=== PATIENT | male | born 1935 | race Caucasian/White ===

== ENCOUNTER 2022-04-14 07:45 | Inpatient (IN) ==
[2022-04-14] MEDS ORDERED: ONDANSETRON INJ 2 MG/ML 2 ML VIAL IV STA (07:51)
[2022-04-14] MEDS: HYDROmorphone INJ 0.5 MG/0.5 ML SYR IV PRN ×3 (07:58→18:45)
[2022-04-14] MEDS ORDERED: SODIUM CHLORIDE 0.9% 500 ML IV SCH (08:00)
[2022-04-14] MEDS ORDERED: HYDROmorphone INJ 0.5 MG/0.5 ML SYR IV STA (08:02)
[2022-04-14 08:04] LABS: Basophils # (auto) 0.03 K/uL (0-0.2); Basophils % (auto) 0.3 %; Eosinophils # (auto) 0.01 K/uL (0-0.50); Eosinophils % (auto) 0.1 %; Hemoglobin 13.2 g/dl (14.0-18.0); Immature Granulocytes # (auto) 0.05 K/uL (0.00-0.02); Immature Granulocytes % (auto) 0.4 %; Lymphocytes # (auto) 1.59 K/uL (1.2-3.4); Lymphocytes % (auto) 13.7 %; Mean Corpuscular Hemoglobin 30.6 pg (25.0-34.0); Mean Corpuscular Volume 92.6 fL (80.0-100.0); Mean Platelet Volume 9.3 fL (9.4-12.4); Monocytes # (auto) 0.82 K/uL (0.24-0.82); Monocytes % (auto) 7.1 %; Neutrophils % (auto) 78.4 %; Platelet Count 248 K/uL (130-400); RDW Coefficient of Variation 13.5 % (11.5-14.5); RDW Standard Deviation 46.2 fL (36.4-46.3); Red Blood Count 4.32 M/uL (4.63-6.08)
[2022-04-14 08:30] LABS: Alanine Aminotransferase 9 U/L (7-52); Albumin Globulin Ratio 1.1 (0.9-2); Albumin Level 3.6 gm/dl (3.4-5.0); Alkaline Phosphatase 144 U/L (34-104); Anion Gap 5 (3-11); Aspartate Aminotransferase 44 U/L (13-39); BUN Creatinine Ratio 19.8 (10-20); Bilirubin,Total 0.5 mg/dl (0.2-1.0); Blood Urea Nitrogen 18 mg/dl (6-23); Calcium 12.8 mg/dl (8.5-10.1); Carbon Dioxide 32 mmol/L (21-32); Chloride 99 mmol/L (98-107); Est GFR (African American) 88.1 ml/min; Globulin 3.4 gm/dl (2.5-4.0); Glucose 154 mg/dl (70-99(Fasting)); Potassium 4.4 mmol/L (3.5-5.1); Sodium 136 mmol/L (136-145)
--- NOTE | 2022-04-14 08:37 | XRay Report ---
XR humerus LT 2V CLINICAL HISTORY: fall TECHNIQUE: 2 radiographic views of the left humerus were obtained. Comparison: Comparison is made to left elbow radiographs 04/01/2022 FINDINGS: The joint is in place in a splint limiting fine bony detail. There is increased displacement of a pat hologic fracture along with a lytic lesion of the distal humerus. Displaced bony fragments are noted. There is normal bone mineralization. Soft tissue swelling is seen. IMPRESSION: Interval increase in displacement and comminution of previously noted pathologic fracture of the dist al humerus. ACT 112: Negative or not required by law. Electronically signed by: Stephen Cárdenas M.D. 04/14/2022 8:36 AM
[2022-04-14] MEDS ORDERED: SODIUM CHLORIDE 0.9% 1000ML 1,000 ML IV STA (08:56)
[2022-04-14] MEDS ORDERED: SODIUM CHLORIDE 0.9% 1000ML 500 ML IV ONE (08:56)
--- NOTE | 2022-04-14 09:25 | Emergency Department Note ---
Impression & Plan Pathologic fracture of humerus, Fall, Hypercalcemia ED Provider Note INFORMANT: Patient and ED PROVIDER(S): Kenan Garcia MD CHIEF COMPLAINT: Fall and arm pain PLAN: Disposition: Admitted Condition: Guarded Outpatient prescription management: none Referral: None MEDICAL DECISION MAKING: Patient presented because of an accidental fall. He landed on his left arm. He has a known lesion in that arm and he was quite uncomfortable. An IV was established. He was given multiple doses of IV Dilaudid and did receive a dose of IV Zofran. I did place the patient in a long-arm posterior and coaptation splint. X-ray imaging was performed and revealed the presence of a pathologic fracture in the distal left humerus. Patient was found to be hypercalcemic on his laboratory testing. I did discuss the case with his orthopedic team at [facility] Patient is being treated palliatively. They note that this would be an extensive surgical intervention. The patient's noted that they do not have any plans for significant surgeries and the patient is transitioning to hospice. he will need further management in the hospital. Consultation was made with the hospitalist. Patient was evaluated in ER admitted for further management Triage Nursing notes reviewed and agree them. Vital Signs: reviewed and remarkable for hypertension Differential diagnosis: Fracture, subluxation, dislocation, contusion, ligamentous injury, neurovascular, compartment syndrome, rhabdomyolysis, as well as other pathologies. Diagnostics interpreted by me: ECG: none Cardiac Monitoring: Cardiac monitoring ordered by me: The patient was placed on continuous cardiac monitoring and observed. It revealed a normal sinus rhythm at 99 beats per minute without ectopy or evidence of dysrhythmia. Imaging studies: X-ray imaging of the left humerus reveals the presence of a pathologic fracture with displacement. HPI: The patient is a 87 year old male who presents to the Emergency Room with complaints of left arm pain after a fall. This started just prior to arrival and is described as accidental. The patient was going into oncology for palliative radiation on his left arm because of a bony met. The patient also notes the following associated symptoms, none. states the patient may have been a little more confused over the last few days but he has underlying dementia. She notes that the primary may be in the liver but he has spots in multiple places. The patient was to do 5 days of palliative radiation and then start hospice. The patient has taken no medication for relieving factors. Current pain is rated as 10/10. Pt denies LOC, headache, fevers, chills, diaphoresis, visual changes, neck pain, chest pain, breathing difficulties, nausea, vomiting, abdominal pain, back pain, melena, hematochezia, urinary symptoms, numbness, weakness, lymphadenopathy, rash, or other complaints. ROS: See above HPI for pertinent positives & negatives. A total of 10 systems reviewed and were otherwise negative. PAST MEDICAL HISTORY:See Below , metastatic cancer PAST SURGICAL HISTORY:See Below, FAMILY HISTORY:See Below SOCIAL HISTORY:See Below, HOME MEDICATIONS:See Below ALLERGIES:See Below VITALS:See Below PHYSICAL EXAMINATION: GENERAL: Awake, alert, uncomfortable-appearing, in moderate distress HENT: Normocephalic, atraumatic. Oropharynx unremarkable. EYES: Normal conjunctiva. Sclera non-icteric. NECK: Inspection normal. Non-tender. Supple. No nuchal rigidity. FROM. No masses. RESPIRATORY: Clear to auscultation. No wheezes. No rales. Normal respiratory effort. CARDIAC: Normal rate. Normal rhythm. No murmurs. No rubs. Extremities warm and well perfused. Pulses equal. No JVD. GI: Soft, non-distended. No tenderness to palpation. No rebound or guarding. No masses. RECTAL: Deferred. MUSCULOSKELETAL: Right upper and both lower extremities are atraumatic. Chest examination reveals no tenderness. The back is symmetrical on inspection without obvious abnormality. There is no CVA tenderness to palpation. There is moderate swelling to the distal left humerus. No open wounds are noted. Moderate tenderness to palpation. Limitation in range of motion of the left elbow. The left shoulder, forearm, wrist, and hand are nontender. Left upper extremity is neurovascular intact over all dermatomes and myotomes. LOWER EXTREMITIES: Calves are equal size bilaterally and non-tender. No edema. No discoloration. NEURO: Normal sensorium. No sensory or motor deficits noted. SKIN: No rash or jaundice noted. SPLINTING: Indication: Pathologic fracture The injured extremity was identified. The patient was prepped and measured for the placement of a long-arm posterior and coaptation orthoglass splint. Splint applied in the standard fashion over a layer of webril and secured using an e lastic bandage by me. Set into a position of function. Normal neurovascular status after placement verified by me. The patient tolerated the procedure well and the care of the splint was discussed with the patient/family. No complications. Kenan Garcia MD Past Med/Surg History Medical History Alzheimer disease Carotid artery disease "carotid duplex [facility] 12/07/13 ~ 50% stenosis right carotid bulb" Chronic rhinitis Diet-controlled type 2 diabetes mellitus Dyslipidemia HTN (hypertension) Melanoma of back Metastasis to bone of unknown primary Mild aortic stenosis "echo from 09/2013: EF 60-65%, mild aortic valve stenosis and calcification, grade I diastolic dysfunction " Osteomyelitis Rosacea Surgical History H/O vasectomy History of biopsy Bone biopsy 2021 Family History Father Cancer Brain tumor Social History Smoking Status: Former smoker Tobacco Type: Cigarettes and Smokeless Tobacco (Dip or Chew) packs per day: 1; Hx Alcohol Use: Yes Alcohol type: beer Alcohol Intake Frequency: Monthly or Less Hx Substance Use: No Preferred Language: Romanian Communication Ability: Effective Visual Impairment: No Limitations Hearing Ability: Hard of Hearing Research Administrator Required: No Beliefs That Will Affect Care: Caodaism marital status: Current Living Situation: Spouse current occupational status: retired Feels Safe at Home: Yes during the past year weight has: decreased > 10 lbs Assistive Devices: Walker and Wheelchair Allergies Allergies Allergy/AdvReac Type Severity Reaction Status Date / Time No Known Allergies Allergy Unknown Verified 12/06/21 08:00 Home Meds Home Medications Medication Instructions Recorded Confirmed donepezil 10 mg tablet 10 mg PO DAILY 11/18/21 04/14/22 tamsulosin 0.4 mg capsule 0.4 mg PO DAILY 11/18/21 04/14/22 dexamethasone 4 mg tablet 4 mg PO DAILY 04/01/22 04/14/22 morphine 100 mg capsule,extended 100 mg PO Q12H 04/01/22 04/14/22 release pellets buspirone 5 mg tablet 5 mg PO TID PRN Anxiety 04/14/22 04/14/22 naloxegol 25 mg tablet (Movantik) 25 mg PO QAM 04/14/22 04/14/22 oxycodone 20 mg tablet 40 mg PO Q4 PRN Pain 04/14/22 04/14/22 polyethylene glycol 3350 17 17 g PO BID 04/14/22 04/14/22 gram/dose oral powder (Miralax) Previous Rx's Medication Instructions Recorded hyoscyamine sulfate 0.125 mg 0.125 mg PO Q4H PRN increased oral 04/17/22 sublingual tablet (Oscimin SL) secretions #12 tabs lorazepam 0.5 mg tablet (Ativan) 0.5 mg PO Q4H PRN 04/17/22 anxiety/agitation #6 tabs morphine concentrate 100 mg/5 mL 5 mg (0.25 mL) PO Q4H PRN severe 04/17/22 (20 mg/mL) oral solution pain (scale score 7-10) #30 mL Results & Data (ED) Vital Signs Vital Signs - 24 hr 04/14/22 07:46 04/14/22 07:51 Temperature 36.8 C Temperature Source Oral Pulse Rate 118 H Pulse Rhythm Regular Respiratory Rate 22 Respiratory Effort / Characteristics Non-Labored Spontaneous Respiratory Depth Normal Respiratory Pattern Regular Blood Pressure 176/92 H Blood Pressure Mean 120 Blood Pressure Position Lying Pulse Oximetry 99 Oxygen Delivery Method Room Air Room Air Sepsis Recent Fever Within 48 Hours No Sepsis New/Unexplained Change in Mental Status No Sepsis Action Taken by Nursing No Action Required Laboratory Data Result diagrams: 04/17/22 07:17 04/17/22 07:17 Lab Results 04/14/22 04/14/22 04/14/22 Range/Units 07:45 07:45 09:30 WBC 11.60 H (4.8-10.8) K/ul RBC 4.32 L (4.63-6.08) M/uL Hgb 13.2 L (14.0-18.0) g/dl Hct 40.0 L (40.1-51.0) % MCV 92.6 (80.0-100.0) fL MCH 30.6 (25.0-34.0) pg MCHC 33.0 (32.0-36.0) g/dL RDW Std Deviation 46.2 (36.4-46.3) fL RDW Coeff of Francis 13.5 (11.5-14.5) % Plt Count 248 (130-400) K/uL MPV 9.3 L (9.4-12.4) fL Immature Gran % (Auto) 0.4 % Neut % (Auto) 78.4 % Lymph % (Auto) 13.7 % [place] % (Auto) 7.1 % Eos % (Auto) 0.1 % Baso % (Auto) 0.3 % Neut # (Auto) 9.10 H (1.4-6.5) K/uL Lymph # (Auto) 1.59 (1.2-3.4) K/uL [place] # (Auto) 0.82 (0.24-0.82) K/uL Eos # (Auto) 0.01 (0-0.50) K/uL Baso # (Auto) 0.03 (0-0.2) K/uL Immature Gran # (Auto) 0.05 H (0.00-0.02) K/uL Sodium 136 (136-145) mmol/L Potassium 4.4 (3.5-5.1) mmol/L Chloride 99 (98-107) mmol/L Carbon Dioxide 32 (21-32) mmol/L Anion Gap 5 (3-11) BUN 18 (6-23) mg/dl Creatinine 0.91 (0.6-1.4) mg/dl Est Cr Clr Drug Dosing Not Reportable Est GFR ( Amer) 88.1 ml/min Est GFR (Non-Af Amer) 76.0 ml/min BUN/Creatinine Ratio 19.8 (10-20) Glucose 154 H (70-99(Fasting)) mg/dl Calcium 12.8 H* (8.5-10.1) mg/dl Total Bilirubin 0.5 (0.2-1.0) mg/dl AST 44 H (13-39) U/L ALT 9 (7-52) U/L Alkaline Phosphatase 144 H (34-104) U/L Total Protein 7.0 (6.0-8.3) gm/dl Albumin 3.6 (3.4-5.0) gm/dl Globulin 3.4 (2.5-4.0) gm/dl Albumin/Globulin Ratio 1.1 (0.9-2) SARS-CoV-2, RNA, NAAT NEGATIVE (NEGATIVE) Administered Medications Discontinued Medications Enoxaparin Sodium (Enoxaparin Inj 40 Mg/0.4 Ml Syr) 40 mg SQ QAM QUENTIN Stop: 05/15/22 08:59 Last Admin: 04/17/22 08:37 Dose: 40 mg Documented By: Admin: 04/16/22 09:22 Dose: 40 mg Documented By: ROSA MARIA Admin: 04/15/22 09:12 Dose: 40 mg Documented By: ROSA MARIA Haloperidol (Haloperidol 1 Mg Tab) 2 mg PO NOW STA Stop: 04/14/22 15:23 Last Admin: 04/14/22 15:56 Dose: 2 mg Documented By: JUANY Haloperidol Lactate (Haloperidol Lactate 5 Mg/Ml 1 Ml Vial) 1 mg IV NOW STA Stop: 04/14/22 15:13 Last Admin: 04/14/22 16:54 Dose: Not Given Documented By: JUANY Hydromorphone HCl (Hydromorphone Inj 0.5 Mg/0.5 Ml Syr) 0.5 mg IV Q15M PRN PRN Reason: pain Stop: 04/28/22 07:59 Last Admin: 04/14/22 08:21 Dose: 0.5 mg Documented By: Admin: 04/14/22 07:58 Dose: 0.5 mg Documented By: CARLEE Hydromorphone HCl (Hydromorphone Inj 0.5 Mg/0.5 Ml Syr) 0.5 mg IV NOW STA Stop: 04/14/22 08:03 Last Admin: 04/14/22 08:06 Dose: 0.5 mg Documented By: CARLEE Hydromorphone HCl (Hydromorphone Inj 0.5 Mg/0.5 Ml Syr) 0.5 mg IV Q2H PRN PRN Reason: severe breakthrough pain Stop: 04/28/22 12:50 Last Admin: 04/14/22 13:27 Dose: 0.5 mg Documented By: JUANY Hydromorphone HCl (Hydromorphone Inj 0.5 Mg/0.5 Ml Syr) 1 mg IV Q1H PRN PRN Reason: severe breakthrough pain Stop: 04/28/22 12:50 Last Admin: 04/17/22 12:47 Dose: 1 mg Documented By: Admin: 04/14/22 18:45 Dose: 1 mg Documented By: VBL Hydromorphone HCl (Hydromorphone Tool Mechanic 30 Mg/30 Ml) 30 mg IV PRN PRN; Protocol PRN Reason: SALES MANAGER Pain Titration Stop: 04/28/22 15:13 Last Admin: 04/16/22 19:07 Dose: 30 mg Documented By: MG Co-signed By: AAI Admin: 04/15/22 07:36 Dose: 30 mg Documented By: AAI Co-signed By: BLH Admin: 04/14/22 18:50 Dose: 30 mg Documented By: RRR Co-signed By: MALLORY Sodium Chloride (Nss) 500 mls @ 999 mls/hr IV .Q31M QUENTIN Stop: 04/14/22 08:30 Last Infusion: 04/14/22 08:28 Dose: 0 mls/hr Documented By: Admin: 04/14/22 07:57 Dose: 999 mls/hr Documented By: CARLEE Sodium Chloride (Nss 1000ml) 1,000 mls @ 125 mls/hr IV .Q8H STA Stop: 04/14/22 16:55 Last Infusion: 04/14/22 17:20 Dose: 0 mls/hr Documented By: Admin: 04/14/22 14:42 Dose: 125 mls/hr Documented By: RRR Sodium Chloride (Nss 1000ml) 500 mls @ 999 mls/hr IV .Q31M ONE Stop: 04/14/22 09:26 Last Infusion: 04/14/22 09:48 Dose: 0 mls/hr Documented By: Admin: 04/14/22 09:06 Dose: 999 mls/hr Documented By: CARLEE Sodium Chloride (Nss 1000ml) 1,000 mls @ 15 mls/hr IV .Q24H QUENTIN Stop: 04/28/22 15:14 Last Infusion: 04/15/22 19:17 Dose: 0 mls/hr Documented By: Infusion: 04/15/22 12:38 Dose: 0 mls/hr Documented By: ROSA MARIA Admin: 04/14/22 15:15 Dose: 15 mls/hr Documented By: RRR Sodium Chloride (Nss 1000ml) 1,000 mls @ 100 mls/hr IV .Q10H QUENTIN Stop: 04/15/22 04:29 Last Infusion: 04/15/22 07:37 Dose: 0 mls/hr Documented By: Admin: 04/14/22 20:47 Dose: 100 mls/hr Documented By: [facility] Sodium Chloride (Nss) 500 mls @ 75 mls/hr IV .Q6H40M QUENTIN Stop: 05/15/22 07:59 Last Admin: 04/17/22 11:14 Dose: 75 mls/hr Documented By: Infusion: 04/17/22 11:12 Dose: 0 mls/hr Documented By: Admin: 04/17/22 04:24 Dose: 75 mls/hr Documented By: Infusion: 04/17/22 04:24 Dose: 75 mls/hr Documented By: Admin: 04/16/22 22:01 Dose: 75 mls/hr Documented By: Infusion: 04/16/22 21:59 Dose: 0 mls/hr Documented By: Admin: 04/16/22 14:25 Dose: 75 mls/hr Documented By: Infusion: 04/16/22 14:25 Dose: 75 mls/hr Documented By: Admin: 04/16/22 09:36 Dose: 75 mls/hr Documented By: Infusion: 04/16/22 09:36 Dose: 75 mls/hr Documented By: Admin: 04/16/22 09:21 Dose: 75 mls/hr Documented By: Infusion: 04/16/22 09:16 Dose: 0 mls/hr Documented By: Admin: 04/16/22 05:10 Dose: 125 mls/hr Documented By: Infusion: 04/16/22 01:47 Dose: 125 mls/hr Documented By: Admin: 04/15/22 21:47 Dose: 125 mls/hr Documented By: Infusion: 04/15/22 21:47 Dose: 125 mls/hr Documented By: Admin: 04/15/22 18:01 Dose: 125 mls/hr Documented By: Infusion: 04/15/22 18:01 Dose: 0 mls/hr Documented By: Admin: 04/15/22 13:44 Dose: 125 mls/hr Documented By: Infusion: 04/15/22 13:43 Dose: 0 mls/hr Documented By: ROSA MARIA Admin: 04/15/22 09:11 Dose: 125 mls/hr Documented By: ROSA MARIA Miscellaneous (Order Awaiting Action (Naloxegol [Movantik] 25 Mg Tablet)) 1 each N/A QS QUENTIN Stop: 05/14/22 15:59 Last Admin: 04/17/22 08:45 Dose: Not Given Documented By: GESteve Admin: 04/16/22 22:06 Dose: Not Given Documented By: Admin: 04/16/22 14:25 Dose: Not Given Documented By: AALucy Admin: 04/16/22 09:17 Dose: Not Given Documented By: ROSA MARIA Admin: 04/15/22 23:02 Dose: Not Given Documented By: Admin: 04/15/22 15:26 Dose: Not Given Documented By: ROSA MARIA Admin: 04/15/22 09:09 Dose: Not Given Documented By: AALucy Admin: 04/15/22 00:15 Dose: Not Given Documented By: Admin: 04/14/22 17:14 Dose: Not Given Documented By: JUANY Morphine Sulfate (Morphine Sulfate Cr 60 Mg Tabcr) 60 mg PO Q12H QUENTIN Stop: 04/28/22 13:59 Last Admin: 04/14/22 14:47 Dose: 60 mg Documented By: JUANY Morphine Sulfate (Morphine Sulfate Cr 15 Mg Tabcr) 30 mg PO Q12H QUENTIN Stop: 04/28/22 13:59 Last Admin: 04/14/22 14:47 Dose: 30 mg Documented By: JUANY Ondansetron HCl (Ondansetron Inj 2 Mg/Ml 2 Ml Vial) 4 mg IV NOW STA Stop: 04/14/22 07:52 Last Admin: 04/14/22 07:58 Dose: 4 mg Documented By: CARLEE Polyethylene Glycol (Polyethylene (Miralax) 17 Gm Pack) 17 gm PO BID QUENTIN Stop: 05/14/22 20:59 Last Admin: 04/17/22 08:38 Dose: 17 gm Documented By: Admin: 04/16/22 19:19 Dose: 17 gm Documented By: Admin: 04/16/22 09:22 Dose: 17 gm Documented By: ROSA MARIA Admin: 04/15/22 20:01 Dose: 17 gm Documented By: Admin: 04/15/22 09:12 Dose: 17 gm Documented By: ROSA MARIA Admin: 04/14/22 20:52 Dose: 17 gm Documented By: JOSEFINA Potassium Chloride (Potassium Chloride Crtab 20 Meq Tabcr) 40 meq PO NOW STA Stop: 04/16/22 09:00 Last Admin: 04/16/22 09:22 Dose: 40 meq Documented By: ROSA MARIA Senna/Docusate Sodium (Docusate Sodium/Senna 50/8.6mg Tab) 1 tab PO BID QUENTIN Stop: 04/28/22 20:59 Last Admin: 04/17/22 08:36 Dose: 1 tab Documented By: GESteve Admin: 04/16/22 19:18 Dose: 1 tab Documented By: Admin: 04/16/22 09:22 Dose: 1 tab Documented By: ROSA MARIA Admin: 04/15/22 20:01 Dose: Not Given Documented By: Admin: 04/15/22 09:12 Dose: 1 tab Documented By: ROSA MARIA Admin: 04/14/22 20:52 Dose: 1 tab Documented By: JOSEFINA Tamsulosin HCl (Tamsulosin Hcl 0.4 Mg Cap) 0.4 mg PO DAILY QUENTIN Stop: 05/15/22 08:59 Last Admin: 04/17/22 08:37 Dose: 0.4 mg Documented By: Admin: 04/16/22 09:22 Dose: 0.4 mg Documented By: AALucy Admin: 04/15/22 09:12 Dose: 0.4 mg Documented By: AAI Imaging Data Radiologist's Impression: Humerus X-Ray 04/14/22 07:52 XR humerus LT 2V CLINICAL HISTORY: fall TECHNIQUE: 2 radiographic views of the left humerus were obtained. Comparison: Comparison is made to left elbow radiographs 04/01/2022 FINDINGS: The joint is in place in a splint limiting fine bony detail. There is increased displacement of a pathologic fracture along with a lytic lesion of the distal humerus. Displaced bony fragments are noted.There is normal bone mineralization. Soft tissue swelling is seen. IMPRESSION: Interval increase in displacement and comminution of previously noted pathologic fracture of the distal humerus. ACT 112: Negative or not required by law. Electronically signed by: Stephen Cárdenas M.D. 04/14/2022 8:36 AM Discharge Plan Visit Data Chief Complaint: Fall Stated Complaint: FALL ED Provider: Kenan Garcia Discharge Problem: Pathologic fracture of humerus, Fall, Hypercalcemia Patient Disposition: Admitted As Inpatient Discharge Instructions Interventions: ED Discharge Assessment Last Done: 04/14/22 11:35
--- NOTE | 2022-04-14 10:05 | History & Physical Report ---
Date of Service April 14, 2022 Assessment & Plan (1) Pathologic fracture of humerus: (2) Hypercalcemia: (3) Cancer related pain: (4) Falls frequently: (5) Alzheimer disease: (6) HTN (hypertension): (7) Mild aortic stenosis: (8) Dyslipidemia: (9) Diet-controlled type 2 diabetes mellitus: Plan Spoke with outpatient palliative care providers - pt has been declining as outpatient including decreasing oral intake and functional status with frequent falls, and the plan was transition to hospice once completed first five treatments of palliative XRT (timing due to insurance issues). Now with displaced pathologic distal humeral fracture after fall this AM, there may be li mited benefit to pursuing additional XRT. I also spoke with radiation oncology who said pt would not be a candidate for XRT without some type of stabilization of the fracture. Family declines any surgical intervention. Consult placed to ortho for recommendations on non-operative management to potentially stabilize fracture and help with pain control. Ultimately, we'll need to decide if pursuing additional palliative XRT would be beneficial or if pt would instead be a candidate for going home with hospice without additional XRT. Inpatient palliative care service was consulted for assistance. From a medical perspective, we will address hypercalcemia with IVF x 24 hrs, recheck in AM. If persistent elevation, may need to consider Zometa. Pain control has been a challenge for patient as outpatient since he is opioid tolerant - most recent regimen has been MS Contin 100 mg BID with oxycodone 40 mg for breakthrough which pt is taking as often as every 3-4 hours. Appreciate any recommendations from palliative care. Fall precautions. has requested to stay with patient during hospitalization to help minimize potential for delirium and worsening confusion. Pt seen and reviewed with collaborating physician, Dr. Roman. Plan of care discussed and as outlined above. Code Status: DNR/DNI DVT Prophylaxis: José Euceda PA-C History of Present Illness Chief Complaint: Fall, confusion Primary Care Provider: Fco Urban MD This is an 87 y/o male with a PMH of metastatic cancer of unknown primary, Alzheimer disease, diet-controlled DM2, aortic stenosis, dyslipidemia, and HTN who presented to the ED this morning after he fell on his way into radiation therapy, landing on his left arm. History obtained from both patient and his since pt with underlying dementia and recent increase in baseline confusi on. While walking into XRT this morning with his walker, pt lost his balance and fell. He denies hitting head, reporting all of force of the fall was on the arm. No known LOC. He had a known lytic lesion at the distal humerus for which he was to start XRT today - in the ED found to have a displaced distal left humerus fracture. His reports increasing confusion on his baseline dementia over the last 48 hours. Appetite poor at baseline but has been worsening with less oral intake even over the past few days. He had a fever two weeks ago but none since. Does have night sweats but this is an ongoing issue. He had nausea last night with increased eructation, one episode of emesis, but this seems better today. He is on large doses of chronic opioids, which have been constipating in the past, but he is currently moving bowels daily on Movantik daily and Miralax BID. Urinating without difficulty. Allergies Allergy/AdvReac Type Severity Reaction Status Date / Time No Known Allergies Allergy Unknown Verified 12/06/21 08:00 Home Medications Medication Instructions Recorded Confirmed Type donepezil 10 mg tablet 10 mg PO DAILY 11/18/21 04/14/22 History tamsulosin 0.4 mg capsule 0.4 mg PO DAILY 11/18/21 04/14/22 History dexamethasone 4 mg tablet 4 mg PO DAILY 04/01/22 04/14/22 History morphine 100 mg capsule,extended 100 mg PO Q12H 04/01/22 04/14/22 History release pellets buspirone 5 mg tablet 5 mg PO TID PRN Anxiety 04/14/22 04/14/22 History naloxegol 25 mg tablet (Movantik) 25 mg PO QAM 04/14/22 04/14/22 History oxycodone 20 mg tablet 40 mg PO Q4 PRN Pain 04/14/22 04/14/22 History polyethylene glycol 3350 17 17 g PO BID 04/14/22 04/14/22 History gram/dose oral powder (Miralax) Past Med/Surg History Medical History Alzheimer disease Carotid artery disease "carotid duplex [facility] 12/07/13 ~ 50% stenosis right carotid bulb" Chronic rhinitis Diet-controlled type 2 diabetes mellitus Dyslipidemia HTN (hypertension) Melanoma of back Metastasis to bone of unknown primary Mild aortic stenosis "echo from 09/2013: EF 60-65%, mild aortic valve stenosis and calcification, grade I diastolic dysfunction " Osteomyelitis Rosacea Surgical History H/O vasectomy History of biopsy Bone biopsy 2021 Family History Father Cancer Brain tumor Social History Smoking Status: Former smoker Tobacco Type: Cigarettes and Smokeless Tobacco (Dip or Chew) packs per day: 1; Smoking End Date: 39 years ago; Do You Dip or Chew Tobacco: No (quit 20 years); Hx Alcohol Use: Yes Alcohol type: beer Alcohol Intake Frequency: Monthly or Less Hx Substance Use: No Preferred Language: Mosotho Communication Ability: Effective Visual Impairment: No Limitations Hearing Ability: Hard of Hearing 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 Beliefs That Will Affect Care: Hinduism marital status: Current Living Situation: Spouse current occupational status: retired Other Information That Helps Us Care for You: Yes (alzheimers; Veryanxious when Dbe is not here) Feels Safe at Home: Yes Safety Concerns: Feels Safe At This Time during the past year weight has: decreased > 10 lbs Assistive Devices: Walker and Wheelchair Review of Systems Review of Systems: Other (limited due to dementia and confusion - see HPI) Physical Exam Constitutional: no acute distress Eyes: + anicteric sclerae Neck: trachea midline Respiratory: no respiratory distress and no labored breathing Auscultation: lungs clear to auscultation bilaterally; no rales, no rhonchi and no wheezes Cardiovascular: Rate/Rhythm: regular rate and regular rhythm Heart Sounds: + murmur Extremities: no pedal edema Gastrointestinal (Abdomen): Inspection/Auscultation: normal bowel sounds; abdomen not distended Percussion/Palpation: abdomen soft; abdomen nontender Musculoskeletal: LUE in splint - able to move fingers bilaterally, fabrication mig welder strength decreased but equal bilaterally Skin: no jaundice Neurologic: sensation to light touch intact bilateral hands - equal confused, difficulties with short-term memory - asked same questions repeatedly during the exam including if he was going home or being admitted, frequent r eorientation required by spouse at bedside Results & Data Results & Data ([facility]) Vital Signs (Past 12 Hours) Vital Signs Temp Pulse Resp BP Pulse Ox O2 Del Method 04/14/22 07:51 Room Air 04/14/22 07:46 36.8 C 118 H 22 176/92 H 99 Room Air Laboratory Results Laboratory Results - last 24 hr 04/14/22 04/14/22 04/14/22 07:45 07:45 09:30 WBC 11.60 H RBC 4.32 L Hgb 13.2 L Hct 40.0 L MCV 92.6 MCH 30.6 MCHC 33.0 RDW Std Deviation 46.2 RDW Coeff of Francis 13.5 Plt Count 248 MPV 9.3 L Immature Gran % (Auto) 0.4 Neut % (Auto) 78.4 Lymph % (Auto) 13.7 [place] % (Auto) 7.1 Eos % (Auto) 0.1 Baso % (Auto) 0.3 Neut # (Auto) 9.10 H Lymph # (Auto) 1.59 [place] # (Auto) 0.82 Eos # (Auto) 0.01 Baso # (Auto) 0.03 Immature Gran # (Auto) 0.05 H Sodium 136 Potassium 4.4 Chloride 99 Carbon Dioxide 32 Anion Gap 5 BUN 18 Creatinine 0.91 Est Cr Clr Drug Dosing Not Reportable Est GFR ( Amer) 88.1 Est GFR (Non-Af Amer) 76.0 BUN/Creatinine Ratio 19.8 Glucose 154 H Calcium 12.8 H* Total Bilirubin 0.5 AST 44 H ALT 9 Alkaline Phosphatase 144 H Total Protein 7.0 Albumin 3.6 Globulin 3.4 Albumin/Globulin Ratio 1.1 SARS-CoV-2, RNA, NAAT NEGATIVE Diagnostic Findings Left Humerus X-ray 04/14/22 - IMPRESSION: Interval increase in displacement and comminution of previously noted pathologic fracture of the distal humerus. Medications Administered Hydromorphone HCl (Hydromorphone Inj 0.5 Mg/0.5 Ml Syr) 0.5 mg IV Q2H PRN PRN Reason: severe breakthrough pain Stop: 04/28/22 12:50 Last Admin: 04/14/22 13:27 Dose: 0.5 mg Documented By: RRR Discontinued Medications Hydromorphone HCl (Hydromorphone Inj 0.5 Mg/0.5 Ml Syr) 0.5 mg IV Q15M PRN PRN Reason: pain Stop: 04/28/22 07:59 Last Admin: 04/14/22 08:21 Dose: 0.5 mg Documented By: Admin: 04/14/22 07:58 Dose: 0.5 mg Documented By: CARLEE Hydromorphone HCl (Hydromorphone Inj 0.5 Mg/0.5 Ml Syr) 0.5 mg IV NOW STA Stop: 04/14/22 08:03 Last Admin: 04/14/22 08:06 Dose: 0.5 mg Documented By: CARLEE Sodium Chloride (Nss) 500 mls @ 999 mls/hr IV .Q31M QUENTIN Stop: 04/14/22 08:30 Last Infusion: 04/14/22 08:28 Dose: 0 mls/hr Documented By: Admin: 04/14/22 07:57 Dose: 999 mls/hr Documented By: CARLEE Sodium Chloride (Nss 1000ml) 500 mls @ 999 mls/hr IV .Q31M ONE Stop: 04/14/22 09:26 Last Infusion: 04/14/22 09:48 Dose: 0 mls/hr Documented By: Admin: 04/14/22 09:06 Dose: 999 mls/hr Documented By: CARLEE Ondansetron HCl (Ondansetron Inj 2 Mg/Ml 2 Ml Vial) 4 mg IV NOW STA Stop: 04/14/22 07:52 Last Admin: 04/14/22 07:58 Dose: 4 mg Documented By: CARLEE Supervising Physician Co-Signing Physician Notes I have seen and examined the patient and have discussed the case with the provider above. I agree with the assessment and plan as stated. 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 Recent fall on left shoulder with traumatic fracture in area of metastasis and now suffering from pain. Opioid tolerant at baseline on high doses of narcotics and with a h/o Alzheimer's and recent intermittent confusion. is at bedside and states appetite has also been poor except for sweets like ice cream. The patient states he feels comfortable enough to go home. He told me about his time in the [employer] and it appears his custodial memory is intact. He is currently oriented during my discussion. There was clear direction against chemotherapy per the last oncology note, and he is moving into care with palliative at this time. Physical exam reveals LUE in a splint, there is a CAROLYN heard across the precordium that is known to the patient and . Abdomen is NTND and soft. He is alert and oriented and speech is intact. He appears to be fit and younger than stated age. Labwork reviewed and calcium is 12.8, likely related to known bone disease and/or dehydration with poor PO intake. There is a very slight AST elevation of 44 present, down from 96 in November. Alk phos is 144, down from 332 in December 17. Humerus xray reveals new displacement and comminution of a previously noted pathologic fracture of the distal humerus. LUE humerus traumatic fracture in setting of previously known pathologic fracture from metastatic disease. Pain control is the goal here. Will consult orthopedics for guidance on best bone alignment and reduction if needed. Will continue his high dose oral meds with intermittent Dilaudid for breakthrough pain. Palliative is consulted for additional assistance especially with helping to control his pain. Will keep good day night cycles as he is very high risk for delirium in the hospital setting. agrees with plan and all questions were answered to their satisfaction. DO Abel
[2022-04-14] MEDS ORDERED: oxyCODONE HCL IR 5 MG TAB (IMMEDIATE RELEASE) PO PRN (12:49)
[2022-04-14] MEDS ORDERED: busPIRone 5 MG TAB PO PRN (12:49)
[2022-04-14] MEDS ORDERED: HYDROmorphone INJ 0.5 MG/0.5 ML SYR IV PRN (12:51)
--- NOTE | 2022-04-14 12:51 | Palliative Care Consultation ---
Date of Consultation April 14, 2022 Assessment & Plan (1) Palliative care encounter: * Leela has already contacted [facility] and has an admission appt next week. a family they want pt home with hospice support, she adds that he has always been clear he wants "quality not quantity." She is anxious to hear if there are any surgical options to improve his comfort through stabilization and she also states she is not sure he needs more radiation at this junction because it would not only be hard to bring him in for appointments, he would also have his dementia further exacerbated. (2) Cancer related pain: * Pt uses MS Contin 100mg PO BID and Oxy IR 40mg q4h porn BTP averaging 3-4 tabs daily. * MS Contin 200mg/day + Oxy IR 120mg/day (average) = 440 OMEs daily = 147 IV MS equivalent/day = 29mg IV Dilaudid equivalent/day = 1.2mg IV dilaudid per hour equivalent * Pt has very severe cancer related pain, new pathologic fx with tumor progression. He continues to report very severe pain * I will begin a Dilaudid CHIEF ENGINEER. * Adjusting from cross tolerance/dose reduce 50%, will begin Dilaudid CHIEF ENGINEER with 0.3mg per hour basal and 0.5mg CHIEF ENGINEER q15min PRN bolus, max hourly dose will be 2.3mg. Orders written. * I have stopped MS Contin and Oral oxycodone. * Will leave Dilaudid 1mg IV q1h prn for very severe pain unrelieved by CHIEF ENGINEER. PLEASE PAGE ME FOR ANY CANCER PAIN MGT ISSUES. (3) Pathologic fracture of humerus: Ortho consulted, awaiting their eval of pt (4) Falls frequently: (5) Frailty syndrome in geriatric patient: (6) Muscular deconditioning: Plan * Dilaudid CHIEF ENGINEER as noted above. * Leela has already made arrangements for hospice admission. They are clear as a family that they want to honor pt wishes for "quality over quantity, he wants to be home." Additionally with his progressing Alzheimer's, I would advise against shuffling him around to multiple institutions at this stage, it will further exacerbate his dementia related suffering. We discussed that interventions offered should align with their goals and preferences as a family. They do not want transfer to OSH or anything very aggressive. They do want options for things which may improve his pain and assure more comfort at home. The want to bring him home as soon as possible. Their son and dtr in law are coming home tonight and will be here for a week or two. They want to maximize time together as a family and do not want further cancer directed therapies unless they would dramatically improve his comfort. * Generally, fractures in those with advanced dementia prompts us to stop and consider the overall 1-year mortality of the patient and prognosis must be transparently d/w pt/family/designated surrogate decision maker(s). This discussion should include information on likelihood for functional recovery, patient values and preferences, advance care planning documentation, code status, and intensive care unit/re-hospitalization preferences. The benefits and burdens of both surgical and non-surgical management should be clearly communicated along with the best case, worst case, and the most likely scenario regarding both options. Considering the poor long-term survival, Palliative Medicine recommends initial hospice counseling for all patients with advanced dementia after a fracture. * Performance status/functional decline is a valuable prognostic factor in patients with advanced cancer and the majority of conditions. Common cancer syndromes (rough guide, as some conditions may have experienced increases in median survival), with malignant hypercalcemia showing an anticipated survival of approx 8 weeks (except newly diagnosed breast cancer or myeloma.) * Leela asked about what prognostic timelines may be at this junction. I advised her that I would anticipate weeks to a few months, given his overall progression coupled with his declining PS, weakness, mobility impairment, weight loss and advancing dementia. I advised her of the following indicators which help prognosticate when prognosis is a week or less: non-reactive pupils, loss of radial pulse, minimal urine output, inability to close eyelids, Otilio-bhatt breathing, grunting of vocal cords, mandibular breathing, rattle, etc. (from: Guadalupe Box, Zulma K, Shepard R, Tony G, Chana E. A Diagnostic Model for Impending in Cancer Patients: Preliminary Report. Cancer. 2015 Mar 29;121(21):7805-21. pubmed.ncbi.n .nih.gov/41039460 https://pubmed.ncbi.nlm.nih.gov/10543679/ ) * For Oncology Patients: * Patient's Palliative Prognostic Score (PaP) Score = 6.5 points/Interp retation: 30-day survival probability 30-70% * Patient's Palliative Prognostic Index (PPI) Score= 7.5 points/Note: If the PPI is greater than 6.0, survival is less than three weeks (Sensitivity - 80%; Specificity - 85%). Zara Montano [facility] Clinical Director, Palliative Medicine History of Present Illness Reason for Consultation: "met CA, likely transition to home w/ hosp" Attending Physician: Kimmy Roman, History of Present Illness Mr. Vinh Juárez is an 87yo male admitted s/p fall while walking in for his Rad Onc appointment this morning; in ED, he was found to have pathologic fracture in the distal left humerus due to met carcinoma, suggestive of intrahepatic cholangiocarcinoma primary, dx August 2021. Radiation History Metastatic carcinoma of unknown primary with bone metastasis. 09/22/2021. Status post radiation therapy to the left shoulder. He received 2000 cGy in 5 fractions. Given at [facility]. 12/14/2021. Status post completion of radiation therapy to the right pelvis. He received 3000 cGy in 10 fractions. Given at [facility]. Mr. Juárez has hx Alzheimer's dementia, h/o osteomyelitis, recurrent infection LLE, HTN, severe Ao stenosis, moderate carotid vascular disease, HLD, former smoker quit 35yr ago/prior to this was a 1PPD smoker x 30 yr/30PY smoker. Recent imaging shows progression of disease. He continues to struggle with severe cancer related pain for which he has been seeing [facility], currently on MS Contin 100mg PO BID and Oxy IR 40mg q4h porn BTP averaging 3-4 tabs daily Currently with tremendous pain, has been needing IV Dilaudid doses. He has confusion at baseline from dementia Appetite has been steadily worsening, +weight loss Decreasing mobility, declining PS I met with pt, his Leela at bedside, we were later joined by Hospital Medicine Directorcamilla Garcia and then Leela's sister. Pt is very forgetful and unable to provide me with hx. He does not remember falling. He needs constant reminding he has a new fx. He does seem aware he has cancer but cannot answer more about that other than to say he just wants to be home and with his family. Leela shares that she has already spoken with [facility] and made an appointment for intake/admission next week, after 5th RT was done. She states hospice told her they would be agreeable to paying for 5/10 planned RT sessions but could not pay for all 10. Leela also shares pt has been steadily declining, weaker, declining PS, not eating much except sweets red. ice cream and chocolates. He has been losing weight. He needs help with ADLs and she is his sole and primary caregiver. They have 2 adult sons who live out of state. Allergies Allergy/AdvReac Type Severity Reaction Status Date / Time No Known Allergies Allergy Unknown Verified 12/06/21 08:00 Home Medications Medication Instructions Recorded Confirmed Type donepezil 10 mg tablet 10 mg PO DAILY 11/18/21 04/14/22 History tamsulosin 0.4 mg capsule 0.4 mg PO DAILY 11/18/21 04/14/22 History dexamethasone 4 mg tablet 4 mg PO DAILY 04/01/22 04/14/22 History morphine 100 mg capsule,extended 100 mg PO Q12H 04/01/22 04/14/22 History release pellets buspirone 5 mg tablet 5 mg PO TID PRN Anxiety 04/14/22 04/14/22 History naloxegol 25 mg tablet (Movantik) 25 mg PO QAM 04/14/22 04/14/22 History oxycodone 20 mg tablet 40 mg PO Q4 PRN Pain 04/14/22 04/14/22 History polyethylene glycol 3350 17 17 g PO BID 04/14/22 04/14/22 History gram/dose oral powder (Miralax) Patient History Medical History Alzheimer disease Carotid artery disease "carotid duplex [facility] 12/07/13 ~ 50% stenosis right carotid bulb" Chronic rhinitis Diet-controlled type 2 diabetes mellitus Dyslipidemia HTN (hypertension) Melanoma of back Metastasis to bone of unknown primary Mild aortic stenosis "echo from 09/2013: EF 60-65%, mild aortic valve stenosis and calcification, grade I diastolic dysfunction " Osteomyelitis Rosacea Surgical History H/O vasectomy History of biopsy Bone biopsy 2021 Family History Father Cancer Brain tumor Social History (Updated 04/14/22 @ 13:57 by Jodi Euceda PA-C) Smoking Status: Former smoker Tobacco Type: Cigarettes and Smokeless Tobacco (Dip or Chew) packs per day: 1; Hx Alcohol Use: Yes Alcohol type: beer Alcohol Intake Frequency: Monthly or Less Hx Substance Use: No Preferred Language: Hungarian Visual Impairment: No Limitations Hearing Ability: Hard of Hearing 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 Bitemp wasting noted Alert to self, knows he is in [place] and can tell me where he lives but adds that he was lost one day trying to figure out how to get home. Left arm is wrapped and in a sling, elevated slightly. He reports severe pain with even slightest movement. neurovasc check WAL -fingertips warm, pink, no cyanosis or duskiness, mild edema noted to fingers skin otherwise pink and warm Results & Data ([facility]) Vital Signs (Past 12 Hours) Vital Signs Temp Pulse Resp BP Pulse Ox O2 Del Method 04/14/22 10:30 95 H 18 04/14/22 10:00 98 H 26 H 04/14/22 09:30 102 H 30 H 04/14/22 09:03 120 H 25 H 94 04/14/22 09:03 163/96 H 04/14/22 08:30 106 H 30 H 98 04/14/22 08:00 115 H 21 04/14/22 07:48 119 H 22 98 04/14/22 07:51 Room Air 04/14/22 07:46 36.8 C 118 H 22 176/92 H 99 Room Air Laboratory Results Labs and imaging reviewed Diagnostic Findings Labs and imaging reviewed PG Care Time/CCT Total # of Minutes Spent Total Time Spent: 90 Total Time Spent with Patient: Total time spent is greater than 50% in coordination of care (as documented) at patient's floor/unit and/or counseling patient: I spent 100 minutes overall addressing this complex case: 10in medical data review/discussion with referring provider(s) and/or preparation for the visit 60 in direct interaction with the patient and , sister in law 25 of above 60 min spent on Advance Care Planning/Goals of Care discussions as detailed above in note (must be >16min) 15 in subsequent review and synthesis of assessment and plan 15 in communicating with other providers regarding the patient's case: primary team case mgt, pharmacy, nursing, community providers Prolonged Care Time Prolonged Care Time: Yes [place] [address] Inpt Consult Level 5 Patient Type New History Comprehensive Exam Comprehensive Medical Decision Making High Complexity Diagnoses Palliative care encounter Z51.5 Cancer related pain G89.3 Pathologic fracture of humerus M84.429A Falls frequently R29.6 Frailty syndrome in geriatric patient R54 Muscular deconditioning R29.898 Additional Codes Prolonged Care Time - Prolonged Care Time: Yes ([id number])
[2022-04-14] MEDS ORDERED: MORPHINE 100 MG PO SCH (13:00)
[2022-04-14] MEDS ORDERED: MoRPHine SULFATE CR 60 MG TABCR PO SCH (14:00)
[2022-04-14] MEDS ORDERED: MoRPHine SULFATE CR 15 MG TABCR PO SCH (14:00)
[2022-04-14] MEDS ORDERED: HALOPERIDOL LACTATE 5 MG/ML 1 ML VIAL IV STA (15:12)
[2022-04-14] MEDS ORDERED: NALOXONE HCL 0.4 MG/1 ML VIAL/CARP IV PRN (15:14)
[2022-04-14] MEDS ORDERED: SODIUM CHLORIDE 0.9% 1000ML 1,000 ML IV SCH ×2 (15:15→18:30)
[2022-04-14] MEDS ORDERED: haloperidoL 1 MG TAB PO STA (15:22)
--- NOTE | 2022-04-14 18:16 | Orthopedic Consultation ---
Date of Service April 14, 2022 Assessment & Plan (1) Pathologic fracture of humerus: -No acute surgical intervention recommended. No viable way to surgically stabilize the fracture pattern with small distal segment beyond the tumor, bone quality is likely poor give age, radiation, malignancy, etc. -Unfortunate situation overall. Agree with focus on symptom control and pt comfort. Would recommend sling w/ pillow for immobilization at the elbow and shoulder. Can keep splint in place for now for safety purposes while admitted. I offered outpatient follow up to remove splint but thinks this is going to be too challenging. OK for hospice nursing to remove his splint, can keep in place 1-2 weeks at most. Call our office if there are any issues with the splint. I discussed this at length with pt's at bedside. Discussed w/ Dr. Morales. History of Present Illness Reason for Consultation: Pathologic L humerus fracture . Requesting Physician: Kimmy Roman DO . Attending Physician: Kimmy Roman DO Pt is an unfortunate 87 y/o/m with PMHx of metastatic cancer of unknown primary, Alzheimer disease, diet-controlled DM2, aortic stenosis, dyslipidemia, and HTN who was admitted from ED today after he suffered a mechanical fall to his left side with subsequent pathologic left distal humerus fracture. He has been in declining health overall with worsening mentation and frequent falls recently. He has also been receiving treatment for multiple bony lytic lesions with XRT and was on his way to his first radiology treatment for a lytic lesion at the left distal humerus when he fell. He was subsequently brought to ED where XRs were obtained that confirmed pathologic fracture at distal humerus. He was placed in a splint while in ED and admitted to Medicine. He is followed by Palliative Medicine who has been consulted since current admission and family is planning on initiating hospice once discharged home. We are consulted for recommendations regarding the humerus fracture. Pt seen at bedside with present. He appears to be comfortable and is perseverating about his splint/elbow. Does not have much pain in the splint. Unable to provide much other reliable history, per he is doing better than prior to splinting. Allergies Allergy/AdvReac Type Severity Reaction Status Date / Time No Known Allergies Allergy Unknown Verified 12/06/21 08:00 Home Medications Medication Instructions Recorded Confirmed Type donepezil 10 mg tablet 10 mg PO DAILY 11/18/21 04/14/22 History tamsulosin 0.4 mg capsule 0.4 mg PO DAILY 11/18/21 04/14/22 History dexamethasone 4 mg tablet 4 mg PO DAILY 04/01/22 04/14/22 History morphine 100 mg capsule,extended 100 mg PO Q12H 04/01/22 04/14/22 History release pellets buspirone 5 mg tablet 5 mg PO TID PRN Anxiety 04/14/22 04/14/22 History naloxegol 25 mg tablet (Movantik) 25 mg PO QAM 04/14/22 04/14/22 History oxycodone 20 mg tablet 40 mg PO Q4 PRN Pain 04/14/22 04/14/22 History polyethylene glycol 3350 17 17 g PO BID 04/14/22 04/14/22 History gram/dose oral powder (Miralax) Past Med/Surg History Medical History Alzheimer disease Carotid artery disease "carotid duplex [facility] 12/07/13 ~ 50% stenosis right carotid bulb" Chronic rhinitis Diet-controlled type 2 diabetes mellitus Dyslipidemia HTN (hypertension) Melanoma of back Metastasis to bone of unknown primary Mild aortic stenosis "echo from 09/2013: EF 60-65%, mild aortic valve stenosis and calcification, grade I diastolic dysfunction " Osteomyelitis Rosacea Surgical History H/O vasectomy History of biopsy Bone biopsy 2021 Family History Father Cancer Brain tumor Social History Smoking Status: Former smoker Tobacco Type: Cigarettes and Smokeless Tobacco (Dip or Chew) packs per day: 1; Smoking End Date: 39 years ago; Do You Dip or Chew Tobacco: No (quit 20 years); Hx Alcohol Use: Yes Alcohol type: beer Alcohol Intake Frequency: Monthly or Less Hx Substance Use: No Preferred Language: Urdu Visual Impairment: No Limitations Hearing Ability: Hard of Hearing Manager Of Training Required: No Beliefs That Will Affect Care: Zoroastrianism marital status: Current Living Situation: Spouse current occupational status: retired Other Information That Helps Us Care for You: Yes (alzheimers; Veryanxious when Deb is not here) Feels Safe at Home: Yes Safety Concerns: Feels Safe At This Time during the past year weight has: decreased > 10 lbs Assistive Devices: Denture - Upper, Denture - Lower, Glasses, Hearing Aid - Left and Hearing Aid - Right Review of Systems All systems reviewed & are unremarkable except as noted in HPI & below. Physical Exam General: Pleasant 87 y/o/m resting in bed. Confused, perseverating, does not appear to be in obvious pain . LUE: Splint appears to be fitting snugly and was left in place for examination. No significant swelling distal or proximal to the splint. No skin compromise. Full finger ROM to all fingers on L hand. Distally N/V/I. Results & Data Results & Data Laboratory Results Reviewed. Diagnostic Findings XRs reviewed and consistent with lytic lesion and pathologic fracture at left distal humerus. PG Care Time/CCT Total # of Minutes Spent Total Time Spent with Patient: Total time spent is greater than 50% in coordination of care (as documented) at patient's floor/unit and/or counseling patient: Supervising Physician Co-Signing Physician Notes Patient independently seen with his at the bedside. Patient complained of tightness of the splint. I did adjusted and evaluated. It seems adequate. He had some more comfort after loosen some of the straps. I agree with the above note. For now, the splint provides the best means of stabilization. Would expect significant swelling in the next 48 to 72 hours. After acute swelling, he may benefit from a long-arm cast for more stability. Another alternative may be a removable locked elbow range of motion brace or elbow fracture brace. I am uncertain as to whether he benefit from radiation of this point. The fracture Is not amenable to stabilization. I counseled his that there may be 2-3 weeks until he feels that the acute pain and muscle spasm around the fracture calm down. They can contact our clinic for further care as they desire. Coding Level of Care Code 95008 Inpt Consult Level 3 Diagnoses Pathologic fracture of humerus M84.429A
[2022-04-14] MEDS: HYDROmorphone PCA 30 MG/30 ML IV PRN (18:50)
[2022-04-14] MEDS: POLYETHYLENE (MIRALAX) 17 GM PACK PO SCH (20:52)
[2022-04-14] MEDS: DOCUSATE SODIUM/SENNA 50/8.6MG TAB PO SCH (20:52)
[2022-04-15] MEDS ORDERED: OLANZapine 10 MG/2.1 ML SDV IM PRN (05:40)
[2022-04-15 06:47] LABS: Basophils # (auto) 0.07 K/uL (0-0.2); Basophils % (auto) 0.7 %; Eosinophils # (auto) 0.17 K/uL (0-0.50); Eosinophils % (auto) 1.8 %; Hematocrit (blood only) 33.1 % (40.1-51.0); Hemoglobin 10.9 g/dl (14.0-18.0); Immature Granulocytes # (auto) 0.04 K/uL (0.00-0.02); Immature Granulocytes % (auto) 0.4 %; Lymphocytes # (auto) 1.19 K/uL (1.2-3.4); Lymphocytes % (auto) 12.6 %; Mean Corpuscular Hemoglobin 30.5 pg (25.0-34.0); Mean Corpuscular Hgb Conc 32.9 g/dL (32.0-36.0); Mean Corpuscular Volume 92.7 fL (80.0-100.0); Mean Platelet Volume 8.9 fL (9.4-12.4); Monocytes # (auto) 0.91 K/uL (0.24-0.82); Monocytes % (auto) 9.6 %; Neutrophils # (auto) 7.07 K/uL (1.4-6.5); Neutrophils % (auto) 74.9 %; Platelet Count 192 K/uL (130-400); RDW Coefficient of Variation 13.9 % (11.5-14.5); RDW Standard Deviation 47.3 fL (36.4-46.3); Red Blood Count 3.57 M/uL (4.63-6.08); White Blood Count 9.45 K/ul (4.8-10.8)
[2022-04-15 07:07] LABS: BUN Creatinine Ratio 19.7 (10-20); Est GFR (African American) 95.7 ml/min; Est GFR (Non-African American) 82.6 ml/min; Potassium 3.9 mmol/L (3.5-5.1)
[2022-04-15] MEDS: HYDROmorphone PCA 30 MG/30 ML IV PRN (07:36)
[2022-04-15] MEDS: SODIUM CHLORIDE 0.9% 500 ML IV SCH ×4 (09:11→21:47)
[2022-04-15] MEDS: POLYETHYLENE (MIRALAX) 17 GM PACK PO SCH ×2 (09:12→20:01)
[2022-04-15] MEDS: TAMSULOSIN HCL 0.4 MG CAP PO SCH (09:12)
[2022-04-15] MEDS: DOCUSATE SODIUM/SENNA 50/8.6MG TAB PO SCH ×2 (09:12→20:01)
[2022-04-15] MEDS: ENOXAPARIN INJ 40 MG/0.4 ML SYR SQ SCH (09:12)
--- NOTE | 2022-04-15 09:53 | Palliative Care Progress Note ---
Date of Service April 15, 2022 Assessment & Plan (1) Palliative care encounter: Plan: No operative intervention No further RT [facility], he will need the MOBILE MANAGER to control his very severe cancer related pain. (2) Cancer related pain: Plan: Continue current Dilaudid MOBILE MANAGER, no changes Plan for dc home on Monday with [facility] hospice and home MOBILE MANAGER Please call me for any pain and symptom mgt needs through the weekend (3) Pathologic fracture of humerus: Plan: No ortho intervention maybe RT prior to dc, awaiting input (4) Metastasis to bone of unknown primary: (5) Alzheimer disease: Plan Continue Dilaudid MOBILE MANAGER, no changes. It is providing significantly more relief than oral meds and he is able to move around easier. Plan for home hospice DC on Monday, [facility] will move him to their MOBILE MANAGER device prior to dc. we spoke about [employer] teams and the love people evolve for areas over time. When asked, I advised him I am a [employer] fan. We have agreed to forgive each other and continue working together for his cancer pain and symptom mgt, hospice and ongoing caregiver support :) Zara Montano DNP Clinical Director, Palliative Medicine Admission and Anticipated Discharge Date Admission Date: April 14, 2022 Subjective Follow up for cancer related pain mgt. Doing well with MOBILE MANAGER, able to tolerate repositioning, care, etc. LUE remains in sling. Ortho was unable to offer an operative intervention and are in agreement with moving towards home with comfort. Care mgt made aware yesterday, awaiting their input today. Pt seen with at bedside, resting with [employer] blanket in place. Review of Systems Review of Systems: All systems reviewed & are unremarkable except as noted in Subjective Physical Exam Physical Exam: Confused at baseline but pleasant and cooperative. Bitemp wasting noted Alert to self, knows he is in [place] and can tell me where he lives but adds that he was lost one day trying to figure out how to get home. Left arm is wrapped and in a sling, elevated slightly. He reports severe pain with even slightest movement. neurovasc check WAL -fingertips warm, pink, no cyanosis or duskiness, mild edema noted to fingers skin otherwise pink and warm Results & Data ([facility]) Vital Signs (Past 12 Hours) Vital Signs Temp Pulse Resp BP Pulse Ox O2 Del Method 04/15/22 05:36 36.7 C 105 H 18 149/77 H 93 Room Air 04/14/22 22:24 36.5 C 101 H 18 151/80 H 99 Room Air Laboratory Results labs/imaging reviewed Diagnostic Findings labs/imaging reviewed PG Care Time/CCT Total # of Minutes Spent Total Time Spent: 60 Total Time Spent with Patient: Total time spent is greater than 50% in coordination of care (as documented) at patient's floor/unit and/or counseling patient:yes Coding [place] [address] Subseq Hosp Care Lvl 3 Patient Type Established History Detailed Exam Detailed Medical Decision Making Moderate Complexity Diagnoses Palliative care encounter Z51.5 Cancer related pain G89.3 Pathologic fracture of humerus M84.429A Metastasis to bone of unknown primary C79.51; C80.1 Alzheimer disease G30.9; F02.80
--- NOTE | 2022-04-15 14:33 | Hospitalist Progress Note ---
Date of Service April 15, 2022 Assessment & Plan (1) Pathologic fracture of humerus: (2) Hypercalcemia: (3) Cancer related pain: Plan: History of metastatic cancer of unknown primary Patient had a mechanical fall on his way to radiation therapy. Found to have pathological fracture of humerus Also found to have hypercalcemia likely due to lytic lesions Calcium down trended to 11 today. Plan; Orthopedic evaluate the patient on 04/14;recommended symptom control and patient comfort. No surgical intervention. No further radiation; communicated with radiation oncology. GARMENT EXAMINER pump ordered by palliative care; patient will have GARMENT EXAMINER pump set up at home as well. Palliative on board; patient is being set up for home hospice. Likely discharge home on Monday. Continue on IV NS for hypercalcemia. No indication for other therapies at the moment. (4) Alzheimer disease: Plan: On donepezil Admission and Anticipated Discharge Date Admission Date: April 14, 2022 Subjective Patient seen and examined at bedside. His is at bedside with him. Patient is alert, oriented to time and place. His pain is well controlled on current regimen. Review of Systems Review of Systems: All systems reviewed & are unremarkable except as noted in Subjective Physical Exam Physical Exam: Constitutional: WD/WN, vitals as above, NAD, sitting up in bed, pleasant, conversing easily Respiratory: normal respiratory effort, lungs clear to auscultation, no wheeze, rales, rhonchi. Normal insp/exp effort, no accessory muscle use Cardiovascular: RRR, no murmur, no edema Vessels: no JVD or carotid bruit Chest: normal inspection of chest Abdomen: normal bowel sounds, soft, nontender, no hepatosplenomegaly Musculoskeletal: Left upper extremity on a splint. Skin: no rashes, warm and dry normal turgor Neurologic: PERRL, EOMI, accommodation nl, no face palsy, no dysarthria CN's II- XI intact bilaterally and moves all extremities Psychiatric: Oriented to time and place. Lymphatic: no cervical or axillary lymphadenopathy : deferred Results & Data Results & Data ([facility]) Vital Signs (Past 12 Hours) Vital Signs Temp Pulse Pulse Resp BP Pulse Ox O2 Del Method 04/15/22 06:00 83 04/15/22 11:04 36.6 C 92 H 19 145/69 H 96 Room Air 04/15/22 05:36 36.7 C 105 H 18 149/77 H 93 Room Air Laboratory Results Laboratory Results WBC 9.45 K/ul (4.8-10.8) 04/15/22 06:26 RBC 3.57 M/uL (4.63-6.08) L 04/15/22 06:26 Hgb 10.9 g/dl (14.0-18.0) L 04/15/22 06:26 Hct 33.1 % (40.1-51.0) L 04/15/22 06:26 MCV 92.7 fL (80.0-100.0) 04/15/22 06:26 MCH 30.5 pg (25.0-34.0) 04/15/22 06:26 MCHC 32.9 g/dL (32.0-36.0) 04/15/22 06:26 RDW Std Deviation 47.3 fL (36.4-46.3) H 04/15/22 06:26 RDW Coeff of Francis 13.9 % (11.5-14.5) 04/15/22 06:26 Plt Count 192 K/uL (130-400) 04/15/22 06:26 MPV 8.9 fL (9.4-12.4) L 04/15/22 06:26 Immature Gran % (Auto) 0.4 % 04/15/22 06:26 Neut % (Auto) 74.9 % 04/15/22 06:26 Lymph % (Auto) 12.6 % 04/15/22 06:26 Teller % (Auto) 9.6 % 04/15/22 06:26 Eos % (Auto) 1.8 % 04/15/22 06:26 Baso % (Auto) 0.7 % 04/15/22 06:26 Neut # (Auto) 7.07 K/uL (1.4-6.5) H 04/15/22 06:26 Lymph # (Auto) 1.19 K/uL (1.2-3.4) L 04/15/22 06:26 Teller # (Auto) 0.91 K/uL (0.24-0.82) H 04/15/22 06:26 Eos # (Auto) 0.17 K/uL (0-0.50) 04/15/22 06:26 Baso # (Auto) 0.07 K/uL (0-0.2) 04/15/22 06:26 Immature Gran # (Auto) 0.04 K/uL (0.00-0.02) H 04/15/22 06:26 Sodium 137 mmol/L (136-145) 04/15/22 06:26 Potassium 3.9 mmol/L (3.5-5.1) 04/15/22 06:26 Chloride 106 mmol/L (98-107) 04/15/22 06:26 Carbon Dioxide 28 mmol/L (21-32) 04/15/22 06:26 Anion Gap 3 (3-11) 04/15/22 06:26 BUN 15 mg/dl (6-23) 04/15/22 06:26 Creatinine 0.76 mg/dl (0.6-1.4) 04/15/22 06:26 Est Cr Clr Drug Dosing 72.0 ml/min 04/15/22 06:26 Est GFR ( Amer) 95.7 ml/min 04/15/22 06:26 Est GFR (Non-Af Amer) 82.6 ml/min 04/15/22 06:26 BUN/Creatinine Ratio 19.7 (10-20) 04/15/22 06:26 Glucose 92 mg/dl (70-99(Fasting)) 04/15/22 06:26 Calcium 11.0 mg/dl (8.5-10.1) H 04/15/22 06:26 Total Bilirubin 0.5 mg/dl (0.2-1.0) 04/14/22 07:45 AST 44 U/L (13-39) H 04/14/22 07:45 ALT 9 U/L (7-52) 04/14/22 07:45 Alkaline Phosphatase 144 U/L (34-104) H 04/14/22 07:45 Total Protein 7.0 gm/dl (6.0-8.3) 04/14/22 07:45 Albumin 3.6 gm/dl (3.4-5.0) 04/14/22 07:45 Globulin 3.4 gm/dl (2.5-4.0) 04/14/22 07:45 Albumin/Globulin Ratio 1.1 (0.9-2) 04/14/22 07:45 SARS-CoV-2, RNA, NAAT NEGATIVE (NEGATIVE) 04/14/22 09:30 Impressions Humerus X-Ray 04/14/22 07:52 XR humerus LT 2V CLINICAL HISTORY: fall TECHNIQUE: 2 radiographic views of the left humerus were obtained. Comparison: Comparison is made to left elbow radiographs 04/01/2022 FINDINGS: The joint is in place in a splint limiting fine bony detail. There is increased displacement of a pathologic fracture along with a lytic lesion of the distal humerus. Displaced bony fragments are noted.There is normal bone mineralization. Soft tissue swelling is seen. IMPRESSION: Interval increase in displacement and comminution of previously noted pathologic fracture of the distal humerus. ACT 112: Negative or not required by law. Electronically signed by: Stephen Cárdenas M.D. 04/14/2022 8:36 AM
[2022-04-16] MEDS: SODIUM CHLORIDE 0.9% 500 ML IV SCH ×5 (05:10→22:01)
[2022-04-16 08:22] LABS: Albumin Globulin Ratio 1.2 (0.9-2); Albumin Level 2.8 gm/dl (3.4-5.0); BUN Creatinine Ratio 18.9 (10-20); Bilirubin,Total 0.7 mg/dl (0.2-1.0); Calcium 10.5 mg/dl (8.5-10.1); Creatinine Clr Calc Pharmacy 103.3 ml/min; Est GFR (Non-African American) 95.8 ml/min; Globulin 2.4 gm/dl (2.5-4.0); Potassium 3.3 mmol/L (3.5-5.1); Total Protein 5.2 gm/dl (6.0-8.3)
[2022-04-16 08:32] LABS: Basophils # (auto) 0.08 K/uL (0-0.2); Eosinophils # (auto) 0.06 K/uL (0-0.50); Eosinophils % (auto) 0.7 %; Hematocrit (blood only) 32.6 % (40.1-51.0); Immature Granulocytes # (auto) 0.03 K/uL (0.00-0.02); Immature Granulocytes % (auto) 0.4 %; Lymphocytes # (auto) 0.81 K/uL (1.2-3.4); Lymphocytes % (auto) 9.7 %; Mean Corpuscular Hemoglobin 30.7 pg (25.0-34.0); Mean Corpuscular Hgb Conc 33.7 g/dL (32.0-36.0); Mean Corpuscular Volume 91.1 fL (80.0-100.0); Mean Platelet Volume 8.9 fL (9.4-12.4); Monocytes # (auto) 0.82 K/uL (0.24-0.82); Monocytes % (auto) 9.8 %; Neutrophils # (auto) 6.58 K/uL (1.4-6.5); Neutrophils % (auto) 78.4 %; Platelet Count 182 K/uL (130-400); RDW Coefficient of Variation 13.8 % (11.5-14.5); RDW Standard Deviation 46.3 fL (36.4-46.3); Red Blood Count 3.58 M/uL (4.63-6.08); White Blood Count 8.38 K/ul (4.8-10.8)
[2022-04-16] MEDS ORDERED: POTASSIUM CHLORIDE CRTAB 20 MEQ TABCR PO STA (08:59)
[2022-04-16] MEDS: ENOXAPARIN INJ 40 MG/0.4 ML SYR SQ SCH (09:22)
[2022-04-16] MEDS: POLYETHYLENE (MIRALAX) 17 GM PACK PO SCH ×2 (09:22→19:19)
[2022-04-16] MEDS: DOCUSATE SODIUM/SENNA 50/8.6MG TAB PO SCH ×2 (09:22→19:18)
[2022-04-16] MEDS: TAMSULOSIN HCL 0.4 MG CAP PO SCH (09:22)
--- NOTE | 2022-04-16 16:13 | Hospitalist Progress Note ---
Date of Service April 16, 2022 Assessment & Plan (1) Pathologic fracture of humerus: (2) Hypercalcemia: (3) Cancer related pain: Plan: History of metastatic cancer of unknown primary Patient had a mechanical fall on his way to radiation therapy. Found to have pathological fracture of humerus Also found to have hypercalcemia likely due to lytic lesions Calcium down trended to 10.5 today. Plan; Orthopedic evaluated the patient on 04/14;recommended symptom control and patient comfort. No surgical intervention. No further radiation; per prior attending's communication with radiation oncology. OIL WELL SERVICES SUPERVISOR pump ordered by palliative care; patient will have OIL WELL SERVICES SUPERVISOR pump set up at home as well. Palliative on board; patient is being set up for home hospice. Likely discharge home on Monday Vs Monday. Continue on IV NS for hypercalcemia. No indication for other therapies at the moment. - Monitor and replete electrolytes. (4) Alzheimer disease: Plan: On donepezil Admission and Anticipated Discharge Date Admission Date: April 14, 2022 Subjective Patient seen and examined at bedside as a follow-up of pathologic fracture of humerus, hypercalcemia, cancer related pain, history of Alzheimer's disease. Patient is alert, oriented to time and place. His pain is well controlled on current regimen. Patient denies other ROS. Patient's at bedside, reports patient is eating better and has moved his bowels yesterday. Physical Exam Physical Exam: Constitutional: WD/WN, vitals as above, NAD, sitting up in bed, pleasant, conversing easily Respiratory: normal respiratory effort, lungs clear to auscultation, no wheeze, rales, rhonchi. Normal insp/exp effort, no accessory muscle use Cardiovascular: RRR, no murmur, no edema Vessels: no JVD or carotid bruit Chest: normal inspection of chest Abdomen: normal bowel sounds, soft, nontender, no hepatosplenomegaly Musculoskeletal: Left upper extremity on a splint. Skin: no rashes, warm and dry normal turgor Neurologic: PERRL, EOMI, accommodation nl, no face palsy, no dysarthria CN's II- XI intact bilaterally and moves all extremities Psychiatric: Oriented to time and place. Lymphatic: no cervical or axillary lymphadenopathy : deferred Results & Data Results & Data ([facility]) Vital Signs (Past 12 Hours) Vital Signs Temp Pulse Resp BP Pulse Ox O2 Del Method 04/16/22 15:31 36.8 C 80 18 115/54 L 98 Room Air 04/16/22 07:58 36.6 C 85 18 150/59 H 97 Room Air 04/16/22 04:10 36.8 C 90 18 148/75 H 96 Room Air
[2022-04-16] MEDS: HYDROmorphone PCA 30 MG/30 ML IV PRN (19:07)
[2022-04-17] MEDS: SODIUM CHLORIDE 0.9% 500 ML IV SCH ×2 (04:24→11:14)
[2022-04-17 07:49] LABS: Hematocrit (blood only) 32.9 % (40.1-51.0); Hemoglobin 10.9 g/dl (14.0-18.0); Mean Corpuscular Hemoglobin 30.4 pg (25.0-34.0); Mean Corpuscular Hgb Conc 33.1 g/dL (32.0-36.0); Mean Corpuscular Volume 91.6 fL (80.0-100.0); Mean Platelet Volume 9.2 fL (9.4-12.4); Platelet Count 173 K/uL (130-400); RDW Coefficient of Variation 13.7 % (11.5-14.5); RDW Standard Deviation 46.5 fL (36.4-46.3); Red Blood Count 3.59 M/uL (4.63-6.08); White Blood Count 9.23 K/ul (4.8-10.8)
[2022-04-17 08:10] LABS: BUN Creatinine Ratio 20.8 (10-20); Calcium 10.5 mg/dl (8.5-10.1); Creatinine Clr Calc Pharmacy 114.1 ml/min; Est GFR (African American) 115.7 ml/min; Est GFR (Non-African American) 99.8 ml/min; Potassium 3.5 mmol/L (3.5-5.1)
[2022-04-17 08:11] VITALS: BP 155/87; PULSE 79; TEMP 98.2; O2SAT 94
[2022-04-17] MEDS: DOCUSATE SODIUM/SENNA 50/8.6MG TAB PO SCH (08:36)
[2022-04-17] MEDS: TAMSULOSIN HCL 0.4 MG CAP PO SCH (08:37)
[2022-04-17] MEDS: ENOXAPARIN INJ 40 MG/0.4 ML SYR SQ SCH (08:37)
[2022-04-17] MEDS: POLYETHYLENE (MIRALAX) 17 GM PACK PO SCH (08:38)
--- NOTE | 2022-04-17 11:55 | Discharge Summary ---
Date of Service April 17, 2022 Admission HPI Per Admitting Provider This is an 87 y/o male with a PMH of metastatic cancer of unknown primary, Alzheimer disease, diet-controlled DM2, aortic stenosis, dyslipidemia, and HTN who presented to the ED this morning after he fell on his way into radiation therapy, landing on his left arm. History obtained from both patient and his since pt with underlying dementia and recent increase in baseline confusion. While walking into XRT this morning with his walker, pt lost his balance and fell. He denies hitting head, reporting all of force of the fall was on the arm. No known LOC. He had a known lytic lesion at the distal humerus for which he was to start XRT today - in the ED found to have a displaced distal left humerus fracture. His reports increasing confusion on his baseline dementia over the last 48 hours. Appetite poor at baseline but has been worsening with less oral intake even over the past few days. He had a fever two weeks ago but none since. Does have night sweats but this is an ongoing issue. He had nausea last night with increased eructation, one episode of emesis, but this seems better today. He is on large doses of chronic opioids, which have been constipating in the past, but he is currently moving bowels daily on Movantik daily and Miralax BID. Urinating without difficulty. Admission Exam Per Admitting Provider Constitutional: no acute distress Eyes: + anicteric sclerae Neck: trachea midline Respiratory: no respiratory distress and no labored breathing Auscultation: lungs clear to auscultation bilaterally; no rales, no rhonchi and no wheezes Cardiovascular: Rate/Rhythm: regular rate and regular rhythm Heart Sounds: + murmur Extremities: no pedal edema Gastrointestinal (Abdomen): Inspection/Auscultation: normal bowel sounds; abdomen not distended Percussion/Palpation: abdomen soft; abdomen nontender Musculoskeletal: LUE in splint - able to move fingers bilaterally, production cost estimator strength decreased but equal bilaterally Skin: no jaundice Neurologic: sensation to light touch intact bilateral hands - equal confused, difficulties with short-term memory - asked same questions repeatedly during the exam including if he was going home or being admitted, frequent reorientation required by spouse at bedside Principal Diagnosis Pathologic fracture of humerus Hypercalcemia Cancer related pain Alzheimer's disease Discharge Exam Constitutional: WD/WN, vitals as above, NAD, sitting up in bed, pleasant, conversing easily Respiratory: normal respiratory effort, lungs clear to auscultation, no wheeze, rales, rhonchi. Normal insp/exp effort, no accessory muscle use Cardiovascular: RRR, no murmur, no edema Vessels: no JVD or carotid bruit Chest: normal inspection of chest Abdomen: normal bowel sounds, soft, nontender, no hepatosplenomegaly Musculoskeletal: Left upper extremity on a splint. Skin: no rashes, warm and dry normal turgor Neurologic: PERRL, EOMI, accommodation nl, no face palsy, no dysarthria CN's II- XI intact bilaterally and moves all extremities Psychiatric: Oriented to time and place. Lymphatic: no cervical or axillary lymphadenopathy : deferred Discharge Data Allergies Allergy/AdvReac Type Severity Reaction Status Date / Time No Known Allergies Allergy Unknown Verified 12/06/21 08:00 Consultations 04/14/22 09:40 ED Decision to Admit Stat 04/14/22 12:35 Consult Orthopedic Surgery Routine Consult Palliative Care Routine Hospital Course (1) Pathologic fracture of humerus: (2) Hypercalcemia: (3) Cancer related pain: History of metastatic cancer of unknown primary Patient had a mechanical fall on his way to radiation therapy. Found to have pathological fracture of humerus Also found to have hypercalcemia likely due to lytic lesions Calcium down trended to 10.5 today. Plan; Orthopedic evaluated the patient on 04/14;recommended symptom control and patient comfort. No surgical intervention. No further radiation; per prior attending's communication with radiation oncology. CUSTOMER [employer]ACILIT[employer] SUPERVISOR pump ordered by palliative care; patient will have CUSTOMER FACILITIES SUPERVISOR pump set up at home as well. Levsin, roxanal, ativan ordered for DC until hospice takes over care. Palliative on board; patient is being set up for home hospice. Likely discharge home on Monday Vs Monday. Ca has been stable, maintain adeqate hydration at home. No indication for other therapies at the moment. (4) Alzheimer disease: On donepezil Plan Pt being discharged to home w/ hospice with following instructions at the point of DC: You are being discharged to home with hospice. You will be given few days worth of Roxanol, Ativan, Levsin. Your hospice will take over the care and will be started on prescription for comfort care. Avoid fall. Fall precaution at home. For your left humerus fracture,Orthopedics evaluated you. You were recommended sling with pillow for immobilization at elbow and shoulder. You can keep his splint in place for up to 1 to 2 weeks. Either you can call orthopedic office to remove the splint or okay for hospice nursing to remove your splint. Home Health Attestation I certify that this patient is under my care and that I, or a physicians endodontic assistant working with me, had a face to-face encounter that meets the home health [id number] encounter requirements with this patient. The encounter with the patient was in whole, or in part, for the following medical condition, which is the primary reason for home health care (list medical condition): I certify that, based on my findings, the following services are medically necessary home health services: My clinical findings support the need for the above services because: Further, I certify that my clinical findings support that this patient is homebound (i.e. absences from home require considerable and taxing effort and are for medical reasons or advent services or infrequently or of short duration when for other reasons) because: Certification for Home Health Services: Based on the above findings, I certify that this patient is confined to the home and needs intermittent senior care care, physical therapy and/or speech therapy or continues to need occupational therapy. The patient is under my care, and I have initiated the establishment of the plan of care. This patient will be followed by a physician who will periodically review the plan of care. Total Time Total Time Spent Total Time Spent (In Minutes): 35 Discharge Plan Discharge Items Patient Disposition: Hospice - Home Reason For Visit: HYPERCALCEMIA, PATHOLOGIC HUMERUS FX Discharge Diagnosis: Pathologic fracture of humerus Hypercalcemia Cancer related pain Alzheimer's disease Activity: As commented below Non-emergency contact: Primary Care Provider Call non-emergency contact if: you have any medication questions and your pain is not controlled Follow-up/Referrals: Clem Morales MD [Surgeon] - ( follow-up in 2 to 3 weeks for transition out of the splint) Fco Urban MD [Primary Care Provider] - Diet: Regular Addtl Attending Provider Instructions: You are being discharged to home with hospice. You will be given few days worth of Roxanol, Ativan, Levsin. Your hospice will take over the care and will be started on prescription for comfort care. Avoid fall. Fall precaution at home. For your left humerus fracture,Orthopedics evaluated you. You were recommended sling with pillow for immobilization at elbow and shoulder. You can keep his splint in place for up to 1 to 2 weeks. Either you can call orthopedic office to remove the splint or okay for hospice nursing to remove your splint. Pending Studies at Discharge: No Stand-Alone Forms: My [facility] Medications and DC Order Prescriptions: New morphine concentrate 100 mg/5 mL (20 mg/mL) solution 5 mg PO Q4H PRN (Reason: severe pain (scale score 7-10)) Qty: 30 0RF lorazepam [Ativan] 0.5 mg tablet 0.5 mg PO Q4H PRN (Reason: anxiety/agitation) Qty: 6 0RF hyoscyamine sulfate [Oscimin SL] 0.125 mg tablet, sublingual 0.125 mg PO Q4H PRN (Reason: increased oral secretions) Qty: 12 0RF Continued tamsulosin 0.4 mg capsule 0.4 mg PO DAILY donepezil 10 mg tablet 10 mg PO DAILY morphine 100 mg capsule,extend.release pellets 100 mg PO Q12H dexamethasone 4 mg tablet 4 mg PO DAILY Rx Instructions: Before XRT buspirone 5 mg tablet 5 mg PO TID PRN (Reason: Anxiety) polyethylene glycol 3350 [Miralax] 17 gram/dose Powder 17 g PO BID oxycodone 20 mg tablet 40 mg PO Q4 PRN (Reason: Pain) Movantik 25 mg tablet 25 mg PO QAM Discharge Orders: Discharge Order (Routine); Ordered 04/17/22 Ordered By: Otoniel Ivory Admission Data Admit Date/Time: 04/14/22 10:26 Attending Provider: Otoniel Ivory Admit Provider: Kimmy Romna Primary Care Provider: Fco Urban Other Providers: Kimmy Roman ; [facility] ; Celestino Castañeda ; Leticia Rosado
[2022-04-17] MEDS: HYDROmorphone INJ 0.5 MG/0.5 ML SYR IV PRN (12:47)
== END 2022-04-17 13:20 | disposition hospice, home (50) | DRG 543 ==
LOC: ED 07:45 → SUATTDRO 10:26 → 2W 10:26
DX: C80.1 Malignant (primary) neoplasm, unspecified; Z85.820 Personal history of malignant melanoma of skin; I10 Essential (primary) hypertension; E11.9 Type 2 diabetes mellitus without complications; Z87.891 Personal history of nicotine dependence; Z66 Do not resuscitate; I35.0 Nonrheumatic aortic (valve) stenosis; G30.9 Alzheimer's disease, unspecified; C79.51 Secondary malignant neoplasm of bone; Z51.5 Encounter for palliative care; F02.80 Dementia in other diseases classified elsewhere, unspecified severity, without behavioral disturbance, psychotic disturbance, mood disturbance, and anxiety; W18.30XA Fall on same level, unspecified, initial encounter; Y92.89 Other specified places as the place of occurrence of the external cause; R29.6 Repeated falls; Z92.3 Personal history of irradiation; M84.422A Pathological fracture, left humerus, initial encounter for fracture; E86.0 Dehydration; E83.52 Hypercalcemia; G89.3 Neoplasm related pain (acute) (chronic)